=== PATIENT | male | born 1950 | race Two or more races ===

== ENCOUNTER 2024-12-28 06:50 | Inpatient (IN) | payer MEDICARE, OTHER, SELFPAY ==
[2024-12-28] VITALS (19 sets, daily range): BP systolic 108–185; BP diastolic 62–99; BMI 20.7
[2024-12-28 02:30] LABS: Hematocrit 39.6 % (39.0-52.0); Hemoglobin 12.7 g/dL (13.0-18.0); Mean Corp Hgb Conc. 32.1 g/dL (33.0-37.0); Mean Corpuscular Volume 93.8 fL (80.0-94.0); Nucleated Red Blood Cells % 0 % (-); Platelet Count 185 10^3/uL (130-400); Red Cell Dist. Width 14.1 % (11.5-14.5)
[2024-12-28 02:52] LABS: ALT (SGPT) 21 U/L (0-50); AST (SGOT) 29 U/L (17-59); Albumin 4.5 g/dl (3.5-5.0); Alkaline Phosphatase 118 U/L (38-126); Blood Urea Nitrogen 17 mg/dl (9-20); Calcium 9.7 mg/dl (8.4-10.2); Carbon Dioxide 29 mmol/L (22-30); Chloride 103 mmol/L (98-107); Glucose 186 mg/dl (70-99); Potassium 4.7 mmol/L (3.5-5.1); Sodium 139 mmol/L (135-145); Total Protein 7.8 g/dl (6.3-8.2); eGFR > 60.00
[2024-12-28 03:07] LABS: Troponin I 0.256 ng/ml
[2024-12-28] MEDS: LOW STRENGTH ASPIRIN 324 MG PO (04:08)
[2024-12-28] MEDS: NITROSTAT (SUBLINGUAL) 0.4 MG SL ×3 (04:09→05:12)
[2024-12-28] MEDS: HEPARIN 3700 UNITS IV (04:32)
[2024-12-28] MEDS: HEPARIN 25000 UNITS/250 ML IV (04:33)
[2024-12-28 04:35] LABS: APTT 29.0 Sec (23.4-35.0)
--- NOTE | 2024-12-28 05:37 | ED.GENMED ---
History of Present Illness
General
Chief Complaint: Chest Pain
Source: patient and family
Exam Limitations: none
Time Seen by Provider: 12/28/24 03:53
Nursing documentation reviewed up to this point in time: agreed with
History of Present Illness
History of Present Illness:
The patient is a 74-year-old male presenting with a history of intermittent chest pain persisting over several months, which has recently become more constant over the past few days. The patient reports that the chest pain is exacerbated by physical
activity. He was evaluated by a scudding inspector last week, following a previous assessment four to five months ago where he underwent a pharmacologic stress test with persantine and an echocardiogram, both reportedly normal at that time.
During his recent cardiology visit, it was suggested to obtain a cardiac computed tomography scan for calcium scoring. The patient denies any previous history of myocardial infarction.
Currently, the patient experiences substernal chest pain, but denies associated shortness of breath.
He has history of hypertension, [id number] diabetes, hyperlipidemia.
His current scudding inspector is Dr. Watt in [place]. No previous visits to [facility].
Past History
Past History
ED Past Medical History: HTN, Hypercholesterolemia and NIDDM
ED Past Surgical History: Appendectomy
Social History
Tobacco: Non-smoker
Alcohol: None
Drug: None
Personal:
Living: with family
Employment: Retired
Family History
Family History: Other (Noncontributory)
Phy Exam
Physical Exam
Physical Exam:
GENERAL: 74-year-old gentleman appears his stated age, awake and alert, pleasant, appears in no acute distress. and son are accompanying.
EYE: anicteric
NECK: Supple, nontender, no meningismus, no significant adenopathy.
ENT: oral mucosa is moist. No rhinorrhea.
CARDIAC: Regular rate and rhythm. no murmur.
LUNGS: Clear breath sounds bilaterally, no acute respiratory distress, no wheezes/rales/rhonchi
ABDOMEN: Soft, nondistended, without focal tenderness, no r/g, no cvat. normoactive BS.
NEUROLOGICAL: Alert and oriented x3, no focal neuro deficits.
SKIN: Warm and dry, normal color, skin intact. No rash.
MUSCULOSKELETAL: No C/C/E. peripheral pulses are full and equal b/l. No palpable tenderness.
PSYCH: Normal and appropriate interaction.
Scores
Heart Score for Chest Pain Patients
STEMI patient?: No
History: Highly Suspicious
ECG: Significant ST-Depression
Age: >/= 65 years
Risk Factors: 1 or 2 Risk Factors
Troponin: >/= 3 x Normal Limit
Heart Score for Chest Pain Patients: 9
Heart Score Risk: 72.7 % MACE over next 6 weeks
Course
Orders/Labs/Results
Orders:
Orders
12/28/24 01:45
Electrocardiogram (*1) Urgent
Reason for Study: Chest Pain
EKG- Treatment ONCE
CR Chest - 2 Views Urgent
Comment:
Reason For Exam: chest pain
12/28/24 02:23
Complete Blood Count/With Diff Urgent
Comprehensive Metabolic Panel Urgent
Troponin I Urgent
12/28/24 04:02
Aspirin Chewable [Low Strength Aspirin] 324 mg PO NOW STA
Nitroglycerin Sublingual [Nitrostat (Sublingual)] 0.4 mg SL NOW STA
12/28/24 04:07
Heparin 3,700 units IV NOW STA
Nursing to Place Non Medication Order As Directed
Physician Order: PTT 6 hours after initial start of Heparin infusion
Above order entered?: Yes
12/28/24 04:13
PTT Urgent
12/28/24 04:15
Heparin 88497 Units/250 ml 25,000 units in 250 ml IV PER PROTOCOL
Weight to be used for heparin protocol in kilograms (kg):: 62
Protocol:: Cardiac Tx/Acute Coronary
PTT Goal Range to be used:: PTT 73 to 111 seconds
Order type:: Initial
INITIAL Infusion Dose (UNITS/KG/hr) & then follow protocol:: 12 units/kg/hr
Infusion Dose in UNITS/hr & then follow protocol (UNITS/hr):: 750
INFUSION RATE in mL/hr & then follow protocol (mL/hr):: 7.5
PTT less than or equal to 64 seconds:: Increase rate by 200 units/hr (+ 2 mL/hr)
PTT 64.1 to 72.9 seconds:: Increase rate by 100 units/hr (+ 1 mL/hr)
PTT 73 to 111 seconds:: Target Range. No change in rate.
PTT 111.1 to 130.9 seconds:: Decrease rate by 100 units/hr (- 1 mL/hr)
PTT 131 to 199.9 seconds:: HOLD for 1 hr. Then decrease rate by 200 units/hr (- 2 mL/hr)
PTT greater than or equal to 200 seconds:: HOLD for 2 hrs & Notify Provider. Then decrease by 200 units/hr (-
2 mL/hr)
Lab follow-up:: Each change, PTT q6h until 2 consecutive are therapeutic. Then PTT
daily.
12/28/24 04:52
Nitroglycerin Sublingual [Nitrostat (Sublingual)] 0.4 mg SL NOW STA
12/28/24 05:12
Nitroglycerin Sublingual [Nitrostat (Sublingual)] 0.4 mg SL NOW STA
12/28/24 05:15
Electrocardiogram (*1) Urgent
Reason for Study: Chest Pain
EKG- Treatment ONCE
12/28/24 05:20
Troponin I Urgent
12/28/24 05:33
Nitroglycerin Ointment [Nitro-Bid] 1 inch TOPICAL NOW STA
12/28/24 06:09
Admit/Transfer Patient As Directed
Co-Sign Provider:
Level of Care: Inpatient admission
Assign to:: Telemetry
Physician / Group: bandar
Diagnosis: nstemi
Reason for Telemetry: Chest Pain syndromes
Date to Stop Telemetry: 12/30/24
Time to Stop Telemetry: 11:00
Reason for Hospitalization: nstemi
Expected length of stay greater than two midnights?: Yes
ELOS- Estimated Length of Stay in days: 2
I certify the patient meets the requirements for IP care: Yes
PRN Pain Medication Management As Directed
May give lesser potent ordered pain med per pt: Yes
preference::
Protocol:: Medication orders for pain may be administered in a
manner that supports deferring to patient preference
when the pt is:
- Requesting an ordered lesser potent pain medication.
Least to most potent pain medications are defined
as: acetaminophen < NSAID < tramadol < opioids
(morphine, oxycodone, hydromorphone).
- Requesting a lesser dose of the same medication IF
ORDERED.
- Requesting a less intrusive route of administration
if both routes are prescribed by the provider (PO <
IV).
12/28/24 06:11
Code Status As Directed
Resuscitation Status: Full Code
12/28/24 10:30
PTT Urgent
Comment: heparin
12/30/24 11:00
DC Protocol for Telemetry ONCE
Abnormal Lab Results
12/28/24 12/28/24
02:23 05:20
RBC 4.22 L 10^6/uL
(4.70-6.10)
Hgb 12.7 L g/dL
(13.0-18.0)
MCHC 32.1 L g/dL
(33.0-37.0)
Neutrophils % 75.5 H %
(42.2-75.2)
Lymphocytes % 16.3 L %
(20.5-51.1)
Glucose 186 H mg/dl
(70-99)
Troponin I 0.256 H* ng/ml 0.512 H* D ng/ml
12/28/24 02:23
12/28/24 02:23
Vital Signs
Initial and Last Documented VS:
Initial Vital Signs
Temp Pulse Resp BP Pulse Ox
97.7 F 91 18 185/99 98
12/28/24 01:38 12/28/24 01:38 12/28/24 01:38 12/28/24 01:38 12/28/24 01:38
Last Documented Vital Signs
Temp Pulse Resp BP Pulse Ox
97.7 F 63 19 121/68 98
12/28/24 01:38 12/28/24 06:00 12/28/24 02:15 12/28/24 06:00 12/28/24 06:00
MDM/Problems Addressed
Differential Diagnosis Includes:
The Differential Diagnosis includes, in no particular order and is not limited to:
1. Myocardial infarction
2. Stable angina
3. Unstable angina
4. Gastroesophageal reflux disease
5. Musculoskeletal chest pain
6. Pulmonary embolism
7. Pericarditis
8. Aortic dissection
9. Costochondritis
10. Anxiety-related chest pain
MDM/Problems Addressed:
Acute chest pain
Initial EKG shows inferolateral ST downsloping/ischemia without reciprocal changes. No old EKGs to compare. Significant concern for ACS. Patient has been given 324 mg chewable aspirin
And will trial nitroglycerin for chest pain.
Initial labs reveal troponin 0.256
Random glucose elevated at 186. All other labs within normal limits.
Chest x-ray is unremarkable. Clear lung carrero. Normal heart size.
Chronic conditions affecting care: DM, HTN and Other (Hyperlipidemia)
*Radiology
Radiology exam reviewed: preliminary read by ED provider (Chest x-ray is unremarkable. Clear lung carrero. Normal heart size.)
*Pulse Oximetry
SaO2: 100
Oxygen Mode of Delivery: Room air
Patient hypoxic: no
*EKG
Interpreted by ED Provider?: Yes
Interpretation: abnormal
Comparison EKG: no comparison EKG present
Rate: normal
Rhythm: sinus
[place]: normal axis
Interval: normal interval
QRS Pattern: normal QRS
Ischemia: ST depression
*Women Designer Interpretation
Rate: normal
Interpretation: normal
Rhythm: sinus
*Critical Care Note
Total Time (30-74mins, 75-104mins- exclusive of procedures): 45
comment:
Critical care statement: A total of 45 minutes of critical care time was provided for this patient. This includes management of unstable vital signs, evaluation of the patient at bedside, reviewing the patient's pertinent medical records, discussion
with consultants, review of old EKGs and review of pertinent medical records. This time with separate from time utilized to perform the aforementioned documented procedures
Update Note
Update Note:
05:40
After 3 sublingual nitroglycerin patient is chest pain-free.
IV heparin infusing.
Will add Nitropaste.
He remains hemodynamically stable.
Repeat EKG continues to show lateral ischemia, mildly improved from initial EKG.
Repeat troponin is pending.
Will plan to admit to hospitalist service with consult to cardiology.
[facility], Dr. Juarez notified.
ED Attending Note
-
Portions of this chart may have been created with voice recognition software.� Occasional wrong word or��sound alike� substitutions may have occurred due to the inherent limitations of voice recognition software.
Discharge Plan
Departure
Patient Disposition: Admit
Date of Disposition: 12/28/24
Time of Disposition: 05:38
Admit to doctor: Jameson
Presentation/result/management discussed w/ accepting MD/DO: Hospitalist
Condition: Serious
Discharge Problem:
Acute non-ST elevation myocardial infarction (NSTEMI)
Prescriptions:
No Action
atorvastatin 10 mg Tablet
10 mg PO DAILY
omeprazole 40 mg Capsule,Delayed Release(Dr/Ec)
40 mg PO DAILY
repaglinide 0.5 mg Tablet
0.5 mg PO TID
levothyroxine 50 mcg Tablet
50 mcg PO DAILY
ferrous sulfate 325 mg (65 mg iron) Tablet
325 mg PO DAILY
valsartan 160 mg Tablet
160 mg PO DAILY
escitalopram oxalate 10 mg Tablet
10 mg PO DAILY
cyclosporine [Restasis] 0.05 % Dropperette
1 drp OPHTHALMIC (EYE) Q12H
Rx Instructions:
instill 1 drop into both eyes twice a day
metformin 750 mg Tablet Extended Release 24 Hr
750 mg PO DAILY
memantine 5 mg Tablet
5 mg PO DAILY
cholecalciferol (vitamin D3) 25 mcg (1,000 unit) Tablet
25 mcg PO DAILY
Linzess 72 mcg Capsule
72 mcg PO DAILY
Referrals:
Frandy Watt MD [Family Provider]
Interventions
Interventions:
*Risk Screen - Suicide Last Done: 12/28/24 01:38
*General Assessment Last Done: 12/28/24 01:38
*Neglect/Abuse Screening Last Done: 12/28/24 01:38
*ED COVID-19 Vaccine History Last Done: 12/28/24 01:44
*ED Influenza Vaccine History Last Done: 12/28/24 01:44
ED- Cardiac Assessment Last Done: 12/28/24 02:25
Discharge Date and Time
Print Language: FAROESE
[2024-12-28] MEDS: NITRO-BID 1 INCH TOPICAL (05:55)
--- NOTE | 2024-12-28 06:04 | HPS.HSE ---
Family Physician
-
Family Physician: Frandy Watt
Chief Complaint
-
Chest pain
History of Present Illness
This is a 74-year-old with past medical history significant for hypertension, hypothyroid, diabetes, hyperlipidemia presented to the emergency department with chest pain.
Patient reports episodes of intermittent chest pain starting about 4 months ago. At the time he was seen at [facility] and had echo and stress test and was found to have no abnormalities. He has continued to have a chest pain since then with
increasing frequency over the last few weeks. 1 week ago he was also seen by cardiology at [place] and a CT scan was ordered and it is pending at this time. Over the last few days the patient reports that his chest pain has been much more
frequent lasting long and Sunday patient had chest pain throughout the day. Reports substernal chest pain, without radiation. He denies any associated nausea vomiting diaphoresis. He denies any palpitations lightheadedness or dizziness. He
denies any lower extremity swelling orthopnea or PND.
Patient has significant chest pain on arrival in the emergency department. He is chest pain-free after 3 doses of sublingual nitroglycerin.
Emergency department patient was afebrile, blood pressure was 118/69 with a pulse rate of 60 and he was satting 97% on room air. ECG shows ST depressions in the leads V4 through 6 as well as 2 3 and aVF. Troponin was initially 0.25. Chest x-ray
was clear.
CBC was unremarkable. Electrolytes and creatinine were all within normal range.
Medical History
Past Medical History
Past Medical History: Reports HTN, Hypercholesterolemia, Hypothyroidism and NIDDM
Past Surgical History: Reports Appendectomy
Social History
Tobacco: Non-smoker
Alcohol: None
Drug: None
Living: With Family
Family History
Family History: Not pertinent
Allergies / Home Medications
Allergies reflects when Allergies were last updated in [employer].
Home Medications with original date entered in [employer]
Allergy/Medication List:
Allergies
Allergy/AdvReac Type Severity Reaction Status Date / Time
No Known Allergies Allergy Verified 12/28/24 01:37
Home Medications
atorvastatin 10 mg tablet 10 mg PO DAILY 12/28/24
cholecalciferol (vitamin D3) 25 mcg (1,000 unit) tablet 25 mcg PO DAILY 12/28/24
cyclosporine 0.05 % eye drops in a dropperette (Restasis) 1 drp ophthalmic (eye) Q12H 12/28/24
escitalopram oxalate 10 mg tablet 10 mg PO DAILY 12/28/24
ferrous sulfate 325 mg (65 mg iron) tablet 325 mg PO DAILY 12/28/24
levothyroxine 50 mcg tablet 50 mcg PO DAILY 12/28/24
linaclotide 72 mcg capsule (Linzess) 72 mcg PO DAILY 12/28/24
memantine 5 mg tablet 5 mg PO DAILY 12/28/24
metformin 750 mg tablet,extended release 24 hr 750 mg PO DAILY 12/28/24
omeprazole 40 mg capsule,delayed release 40 mg PO DAILY 12/28/24
repaglinide 0.5 mg tablet 0.5 mg PO TID 12/28/24
valsartan 160 mg tablet 160 mg PO DAILY 12/28/24
Review of Systems
-
Constitutional: Reports No Symptoms
EENT: Reports No Symptoms
Respiratory: Reports No Symptoms
Cardiac: Reports Chest Pain
Abdomen/GI: Reports No Symptoms
: Reports No Symptoms
Musculoskeletal: Reports No Symptoms
Skin: Reports No Symptoms
Neurological: Reports No Symptoms
Endocrine: Reports No Symptoms
Hematologic/Lymphatic: Reports No Symptoms
Psych: Reports No Symptoms
Physical Exam
Vital Signs
Vital Signs
Temp Pulse Resp BP Pulse Ox
97.7 F 63 19 121/68 98
12/28/24 01:38 12/28/24 06:00 12/28/24 02:15 12/28/24 06:00 12/28/24 06:00
Physical Exam
General: Well Developed, Well Nourished and No Apparent Distress
HEENT: NormoCephalic, Moist mucous membranes and Atraumatic
Respiratory: Clear
Cardiac: S1/S2 and Regular Rhythm; No Murmur or Rub
GI: Soft, Non Tender, Non Distended and Normal Bowel Sounds; No Organomegaly
Rectal: Deferred by Provider
Musculoskeletal: No Clubbing, No Cyanosis and No Edema
Skin: No Rash
Neuro: AO x 3 and Nonfocal/grossly intact
Hematologic/Lymphatic: No Lymphadenopathy
Laboratory Results
-
12/28/24 02:23
12/28/24 02:23
Laboratory Results
APTT 29.0 Sec (23.4-35.0) 12/28/24 04:13
Total Bilirubin 0.9 mg/dl (0.2-1.3) 12/28/24 02:23
AST 29 U/L (17-59) 12/28/24 02:23
ALT 21 U/L (0-50) 12/28/24 02:23
Alkaline Phosphatase 118 U/L (38-126) 12/28/24 02:23
Troponin I Cancelled 12/28/24 05:09
Data Reviewed
-
Diagnostic Radiology: Image Personally Visualized and interpreted
Medical Tests (Nuc Med, Echo, EKG etc): Image Personally Visualized and interpreted
Lab Data: Labs Reviewed by me
Impression/Plan
-
IMPRESSION:
74-year-old with multiple comorbidities presented to the emergency department with chest pain and found to have non ST elevation TN with ST depressions on ECG.
PLAN:
NSTEMI - Currently CP and HD stable after SL NTG. 4 month h/o substernal cp intermittently and 1 day of persistent cp. Denies any other associated symptoms
- admit to telemetry
- NPO for now
- ntg prn chest pain
- ecg prn cp
- started asa 324, heparin gtt
- continue asa 81 daily
- echo
- cardiovascular panel
- cardiology consult to [facility]
DM II
- hold metformin
- sliding scale insulin
HTN
- continue valsartan with hold parameters
Hypothyroid
- continue levothyroxine
DVT PPX - on heparin sq
Code status - Full Code
[2024-12-28 06:11] LABS: Troponin I 0.512 ng/ml
--- NOTE | 2024-12-28 07:50 | PTCARENOTE ---
12/28- Patient transferred and oriented to unit without issue. Patient speaks [place] with minimal Haitian, but Daughter is with him and is fluent in both. She states this is his first time in a hospital, but he does have a hx of Constipation, High
Blood Pressure, High Cholesterol and Hypothyroidism. Discussed plan of care with daughter and patient. Gave printed education on CAD and Heart Disease in [place]. Patient is AAOX3, Independent walking with cane. Teley #[id number], currently NSR.
Assessment benign except an intermittent S3 heart sound. Skin CDI. Will continue to monitor.
[2024-12-28 09:15] LABS: Troponin I 2.110 ng/ml
[2024-12-28] MEDS: DIOVAN 160 MG PO (09:26)
[2024-12-28] MEDS: LIPITOR 10 MG PO (09:26)
[2024-12-28] MEDS: LEXAPRO 10 MG PO (09:26)
[2024-12-28] MEDS: SYNTHROID 50 MCG PO (09:26)
[2024-12-28] MEDS: NAMENDA 5 MG PO (09:27)
[2024-12-28] MEDS: PROTONIX 40 MG PO (09:27)
[2024-12-28] MEDS: FEOSOL 325 MG PO (09:27)
[2024-12-28] MEDS: RESTASIS 0.05% OPHTHALMIC EMULSION 1 DROPS OPHTH ×2 (09:27→19:48)
[2024-12-28 09:35] LABS: Glucose - Point of Care 106 mg/dl (70-99)
[2024-12-28 11:07] LABS: APTT 67.8 Sec (23.4-35.0)
--- NOTE | 2024-12-28 11:40 | CON.CAR ---
Consultation
Consultation Request
Date/Time Consultation Requested: 12/28/2024 6: 30
Date/Time Consultation Performed: 12/28/2024 10: 30
Requesting Provider: Jc
Performing Provider: Ann
Reason for Consultation: Chest pain, non-STEMI
Medical History
-
Chief Complaint: Chest pain
History of Present Illness:
Cesar has a history of hypertension, hypothyroidism, diabetes, hypercholesterolemia. He has had chest pain for the past 2 months. It occurs mostly with exertion with walking up steps. He saw cardiology in [place] and had normal stress test
and echo in the summer 2024. History is obtained with daughter acting as deicer tester as patient has language barrier. He had worsening chest discomfort last night came to the ER and is ruled in for non-STEMI. No chest pain at present
Past Medical History
Past Medical History: Other (See HPI)
Past Surgical History: Appendectomy
Social History
Tobacco: Non-Smoker
Alcohol: None
Drug: None
Personal:
Living: With Family
Employment: Retired
Family History
Family History: Other (Father did not have heart disease but mother had an NC at age 70)
Allergies / Home Medications
Allergy/AdvReac Type Severity Reaction Status Date / Time
No Known Allergies Allergy Verified 12/28/24 01:37
�Medication �Instructions �Recorded �Confirmed �Type
atorvastatin 10 mg tablet 10 mg PO DAILY 12/28/24 12/28/24 History
cholecalciferol (vitamin D3) 25 25 mcg PO DAILY 12/28/24 12/28/24 History
mcg (1,000 unit) tablet
cyclosporine 0.05 % eye drops in a 1 drp ophthalmic (eye) Q12H 12/28/24 12/28/24 History
dropperette (Restasis)
escitalopram oxalate 10 mg tablet 10 mg PO DAILY 12/28/24 12/28/24 History
ferrous sulfate 325 mg (65 mg 325 mg PO DAILY 12/28/24 12/28/24 History
iron) tablet
levothyroxine 50 mcg tablet 50 mcg PO DAILY 12/28/24 12/28/24 History
linaclotide 72 mcg capsule 72 mcg PO DAILY 12/28/24 12/28/24 History
(Linzess)
memantine 5 mg tablet 5 mg PO DAILY 12/28/24 12/28/24 History
metformin 750 mg tablet,extended 750 mg PO DAILY 12/28/24 12/28/24 History
release 24 hr
omeprazole 40 mg capsule,delayed 40 mg PO DAILY 12/28/24 12/28/24 History
release
repaglinide 0.5 mg tablet 0.5 mg PO TID 12/28/24 12/28/24 History
valsartan 160 mg tablet 160 mg PO DAILY 12/28/24 12/28/24 History
Review of Systems
-
History Source: Patient
All other systems: Negative unless noted
Constitutional: No Symptoms
EENT: No Symptoms
Respiratory: No Symptoms
Cardiac: Chest Pain
Abdomen/GI: No Symptoms
: No Symptoms
Musculoskeletal: No Symptoms
Skin: No Symptoms
Neurological: No Symptoms
Endocrine: No Symptoms
Hematologic/Lymphatic: No Symptoms
Physical Exam
Vital Signs
Temp Pulse Resp BP Pulse Ox
98.1 F 62 18 129/62 100
12/28/24 11:23 12/28/24 11:23 12/28/24 11:23 12/28/24 11:23 12/28/24 11:23
General: Well developed, well nourished in NAD.
Neck: Supple, no JVD, HJR, carotids +2 B/L, no bruits bilaterally.
Heart: Non displaced PMI, RRR, no murmurs, No S3, S4, no rubs.
Lungs: Clear to auscultation bilaterally, no wheeze, rhonchi, rubs bilaterally,
normal expiratory phase.
Abdomen: Normal bowel sounds, soft, non-tender, non-distended.
Extremities: No clubbing, cyanosis or edema bilaterally.
Neuro: Grossly nonfocal, awake, alert and oriented x3.
Lab Results
12/28/24 02:23
12/28/24 02:23
Troponin I Cancelled 12/28/24 11:30
Impression / Plan
-
Impression:
Non-STEMI with peak troponin of 2.1 so far
Diabetes
Hypertension
Hypothyroidism
Hypercholesterolemia
Plan:
Patient presents with worsening chest pain and non-STEMI. He is pain-free at present.
Will add Toprol and continue IV heparin
Plan on catheterization on 12/29
Discussed in detail with patient and daughter as well as granddaughter who is a PA
Data Reviewed
-
EKG: Tracing Personally Visualized and interpreted
Radiology: Report Reviewed by me
Medical Tests (Nuc Med, Echo etc): Report Reviewed by me
Labs: Labs Reviewed by me
Old Records: Reviewed
[2024-12-28 11:55] LABS: Glucose - Point of Care 95 mg/dl (70-99)
--- NOTE | 2024-12-28 12:18 | W.PN.UPDATE ---
Update Note
Progress Note Update
No current chest pain
Adding Toprol, continue IV heparin
Plan for left heart cath tomorrow 12/29
Trend troponin till peak
[2024-12-28 16:33] LABS: Glucose - Point of Care 105 mg/dl (70-99)
[2024-12-28] MEDS: TOPROL XL 25 MG PO (16:46)
[2024-12-28 18:44] LABS: APTT 103.4 Sec (23.4-35.0)
[2024-12-28] MEDS: MIRALAX 17 GRAMS PO (20:29)
[2024-12-28 21:08] LABS: Glucose - Point of Care 268 mg/dl (70-99)
[2024-12-29] VITALS (14 sets, daily range): BP systolic 100–157; BP diastolic 46–99; BMI 20.4
[2024-12-29 01:19] LABS: APTT 100.2 Sec (23.4-35.0)
[2024-12-29 05:56] LABS: Glucose - Point of Care 106 mg/dl (70-99)
[2024-12-29 08:09] LABS: Glucose - Point of Care 116 mg/dl (70-99)
[2024-12-29] MEDS: TOPROL XL 25 MG PO (08:22)
[2024-12-29] MEDS: LOW STRENGTH ASPIRIN 81 MG PO (08:23)
[2024-12-29] MEDS: SYNTHROID 50 MCG PO (08:23)
[2024-12-29] MEDS: PROTONIX 40 MG PO (08:23)
[2024-12-29] MEDS: LEXAPRO 10 MG PO (08:23)
[2024-12-29] MEDS: LIPITOR 10 MG PO (08:23)
[2024-12-29] MEDS: NAMENDA 5 MG PO (08:23)
[2024-12-29] MEDS: FEOSOL 325 MG PO (08:23)
[2024-12-29] MEDS: DIOVAN 160 MG PO (08:23)
[2024-12-29] MEDS: RESTASIS 0.05% OPHTHALMIC EMULSION 1 DROPS OPHTH ×2 (08:24→20:54)
[2024-12-29] MEDS: MIRALAX PO (08:26)
--- NOTE | 2024-12-29 08:38 | TRANSFER ---
Report called to [facility] laboratory equipment. Transport set up for patient to be brought down to have a left hear cath. patient aware and instructed to remove all undergarments and jewelry.
[2024-12-29 08:45] LABS: Hematocrit 37.1 % (39.0-52.0); Hemoglobin 11.9 g/dL (13.0-18.0); Mean Corp Hgb Conc. 32.1 g/dL (33.0-37.0); Mean Corpuscular Volume 93.0 fL (80.0-94.0); Platelet Count 168 10^3/uL (130-400); Red Cell Dist. Width 13.8 % (11.5-14.5)
[2024-12-29 08:54] LABS: APTT 84.0 Sec (23.4-35.0)
--- NOTE | 2024-12-29 09:12 | PTCARENOTE ---
recieved pt from [facility] on a stretcher. pt awake , alert, and oriented x3 ,however speaks only some armenian. daughter at bedside to help translate. pts vs are stable. b/p 146/84, nsb at 56, rr at 18, pluse ox 100% on ra. lungs CTA. received pt on
heparin iv drip at 8.5 units /hr. pt now waiting for dr charles to sign consent and proceed w left heart cath.
hr.
[2024-12-29 09:14] LABS: Glycohemoglobin (HgbA1c) 6.1 % (4.0-5.9)
[2024-12-29 09:25] LABS: Blood Urea Nitrogen 14 mg/dl (9-20); Calcium 9.3 mg/dl (8.4-10.2); Carbon Dioxide 30 mmol/L (22-30); Chloride 104 mmol/L (98-107); Estimated Creatinine Clearance 80 ml/min; Glucose 116 mg/dl (70-99); HDL Cholesterol 50 mg/dl; LDL Cholesterol, Calculated 45 mg/dl; Potassium 4.8 mmol/L (3.5-5.1); Sodium 134 mmol/L (135-145); Very Low Density Lipoprotein 9 mg/dl (0-30); eGFR > 60.00
--- NOTE | 2024-12-29 09:51 | PTCARENOTE ---
dr charles at bedside now
--- NOTE | 2024-12-29 10:20 | W.PN.HOSP.TC ---
Today's Communication/Plan
-
see plan
Assessment / Plan
Assessment / Plan
IMPRESSION:
74-year-old with multiple comorbidities presented to the emergency department with chest pain and found to have non ST elevation ME with ST depressions on ECG.
PROCEDURES:
1. Left heart catheterization with coronary and single-plane left ventriculography
2. Successful stenting of the proximal circumflex with a 2.75 x 18 mm Xience stent that was implanted at 16 piter and postdilated with a 3.0 mm noncompliant balloon to 20 piter
PLAN:
NSTEMI - Currently CP and HD stable after SL NTG. 4 month h/o substernal cp intermittently and 1 day of persistent cp. Denies any other associated symptoms
- s/p cardiac cath 12/29 with stenting to proximal circumflex
- continue aspirin, Plavix
- new start Metoprolol
- Atorvastatin increased to 40mg
- TTE
DM II
- hold metformin
- sliding scale insulin
HTN
- continue valsartan with hold parameters
Hypothyroid
- continue levothyroxine
DVT PPX - SCD
Code status - Full Code
Anticipated Discharge: 24 - 48 hours
Subjective/Interval History
-
Date of Service: December 29, 2024
seen post catheterization
feeling well, no chest pain
right wrist in compression
Objective Data
-
Labs:
Laboratory Results
12/29/24 12/29/24
00:52 08:07
WBC 5.4
Hgb 11.9 L
Hct 37.1 L
Plt Count 168
APTT 100.2 H 84.0 H
Sodium 134 L
Potassium 4.8
Chloride 104
Carbon Dioxide 30
BUN 14
Creatinine 0.7
Glucose 116 H
Calcium 9.3
Vital Signs:
Vital Signs
Temp Pulse Resp BP Pulse Ox
97.4 F 58 16 129/64 98
12/29/24 07:00 12/29/24 08:23 12/29/24 07:00 12/29/24 08:23 12/29/24 07:00
I&O
12/28/24 12/29/24 12/30/24
06:59 06:59 06:59
Intake Total 960 / 960
Balance 960 / 960
Review of Systems
-
History Source: Patient
All other systems: Reviewed and negative
Physical Exam
-
General: No Apparent Distress
HEENT: PERRLA
Respiratory: Clear to Auscultation; Negative Wheezes
Cardiac: Regular Rhythm and S1/S2
GI: Soft and Nontender
Musculoskeletal: No Edema
Skin: Warm and Dry; Negative Rash
Neuro: AO x 3
Psych: Calm
Data Reviewed
-
Diagnostic Radiology: Report Reviewed by me
Labs: Labs Reviewed by me
--- NOTE | 2024-12-29 11:45 | ITS.CL.CATH ---
[employer] - Catheterization
Cardiac Catheterization
Procedure Report:
LEFT HEART CATH AND CORONARY INTERVENTION
Date of Procedure: December 29, 2024
Referring: Dr. Tony Wilson
PROCEDURES:
1. Left heart catheterization with coronary and single-plane left ventriculography
2. Successful stenting of the proximal circumflex with a 2.75 x 18 mm Xience stent that was implanted at 16 piter and postdilated with a 3.0 mm noncompliant balloon to 20 piter
INDICATION: This is a 74-year-old gentleman with a past medical history notable for hypertension, hyperlipidemia, and longstanding diabetes mellitus. He presented to [facility] with chest discomfort and ruled in for a small non-ST segment
elevation myocardial infarction. He is now referred for coronary angiography.
ACCESS: Right radial artery, 6 Palestinian sheath using ultrasound guidance
HEMODYNAMICS (mmHg):
AO (s/d, m) : 138/67, 96
LV (s/d) : 156/18
LVEDP : 35
CORONARY FINDINGS
Dominance: Right
LEFT MAIN: Normal
LEFT ANTERIOR DESCENDING: The LAD arises normally from the left main. The LAD is moderately calcified. Diffuse luminal irregularities to 30-40% are noted in the mid LAD. The mid to distal vessel was widely patent and the distal LAD wraps around
the apex
CIRCUMFLEX: The circumflex is a medium caliber nondominant vessel that has a 95% eccentric ruptured plaque in the proximal circumflex. OM1 is a small caliber vessel. The circumflex terminates in a large bifurcating OM 2.
RIGHT CORONARY: The right coronary artery is a moderate caliber dominant vessel. There is mild coronary calcification in the proximal RCA. Only luminal irregularities are noted throughout the vessel. The PDA and posterolateral branch are widely
patent.
VENTRICULOGRAPHY: Left ventriculography is performed in an an KHMER projection. The digital single-plane left ventricular ejection fraction is estimated at 45-50%
ANGIOPLASTY PROCEDURE DETAIL: Upon review of the diagnostic catheterization films the decision was made to proceed with percutaneous revascularization of the high-grade proximal circumflex stenosis. A 180 mg loading dose of ticagrelor was
administered. Intravenous heparin was given and the ACT was monitored throughout the procedure. The origin of the left main was cannulated with a 6 Palestinian EBU 3.5 guide catheter and a BMW guidewire across the high-grade proximal circumflex
stenosis and was advanced into the distal vessel. The circumflex underwent direct stenting with placement of a 2.75 x 18 mm Xience stent that was implanted at 16 piter and postdilated to high-pressure's with a 3.0 mm noncompliant balloon inflated to
16 piter distally and 20 piter in the proximal to midportion of the stent.
SEDATION: 61 minutes of procedural sedation was utilized. An independent medical reviewer was present to assist with and help manage the patient's level of consciousness and physiologic status
RADIATION SUMMARY: Fluoro Time (min): 7.6, Dose (mGy): 382, DAP (Gy.cm2) : 27.1
CONCLUSIONS
1. Successful stenting of the proximal circumflex with a 2.75 x 18 mm Xience stent that was implanted at 16 piter and postdilated with a 3.0 mm noncompliant balloon inflated to 16 piter distally and 20 piter in the proximal and midportion of the stent
2. Low normal LVEF
RECOMMENDATIONS
1. Uninterrupted dual antiplatelet therapy for 1 year followed by aspirin daily afterwards
2. High intensity statin therapy and aggressive secondary risk modification
3. Follow-up will be arranged with Dr. Tony Wilson
Copy to: Dr. Tony Wilson
[2024-12-29 12:00] LABS: Glucose - Point of Care 118 mg/dl (70-99)
[2024-12-29] MEDS: LIPITOR 40 MG PO (12:06)
--- NOTE | 2024-12-29 13:27 | PTCARENOTE ---
Pt received s/p stent to prox circumflex. AAOx3. NSR on tele, HRs 70s. SpO2 100 % on room air. VSS. R radial with TR band on, 13cc remaining in pressure chamber. Small hematoma noted above TR band. Manual pressure held. TAINA Ritter at bedside
to assess. Manual pressure held for 10 minutes. Hematoma no longer present at this time. Will push back removal of air from TR band by 20 minutes per verbal order. Neurovascular checks WDL. Education provided about activity restrictions for RUE.
Assessment documented. Pt resting in bed, family at bedside.
--- NOTE | 2024-12-29 13:44 | CM ---
Reviewed chart. Met with Mr. Watt and his daughter to review discharge plans. Prior to admission he resides with his daughter in a two story home with one step to enter. Prior to admission he ambulates with a single point cane. His daughter
assists in ADLS. He has a single point cane and walker at home. He has a prescription plan with [facility] and uses [facility]. Telephone call to [employer], ( ) to check on co-pay for Brilinta 90 mg po bid. His co-pay is zero
because he has met his $2000.00 out of pocket expense. Updated EXPERIENTIAL THERAPIST. Vickidcal work-up in progress. The discharge plan is to return home with his daughter when medically stable.
--- NOTE | 2024-12-29 13:57 | PTCARENOTE ---
Attempted to remove 2cc of air from TR band. Oozing occurred from r radial puncture site. TR band re-inflated with 2cc of air, oozing stopped. Provider notified. R radial pulse palpable. SpO2 100%, pulse ox on R hand. No hematoma present at this
time.
[2024-12-29 15:16] LABS: Troponin I 2.260 ng/ml
[2024-12-29 17:28] LABS: Glucose - Point of Care 131 mg/dl (70-99)
[2024-12-29] MEDS: BRILINTA 90 MG PO (20:54)
[2024-12-29 21:08] LABS: Troponin I 1.760 ng/ml
[2024-12-30 03:26] VITALS: BP 120/62
[2024-12-30 03:32] VITALS: BMI 20.3
[2024-12-30 03:42] LABS: Hematocrit 33.0 % (39.0-52.0); Hemoglobin 11.0 g/dL (13.0-18.0); Mean Corp Hgb Conc. 33.3 g/dL (33.0-37.0); Mean Corpuscular Volume 89.4 fL (80.0-94.0); Platelet Count 164 10^3/uL (130-400); Red Cell Dist. Width 13.7 % (11.5-14.5)
[2024-12-30 03:53] LABS: APTT 29.4 Sec (23.4-35.0)
[2024-12-30 04:10] LABS: Blood Urea Nitrogen 17 mg/dl (9-20); Calcium 9.1 mg/dl (8.4-10.2); Carbon Dioxide 26 mmol/L (22-30); Chloride 104 mmol/L (98-107); Estimated Creatinine Clearance 79 ml/min; Glucose 124 mg/dl (70-99); HDL Cholesterol 42 mg/dl; LDL Cholesterol, Calculated 39 mg/dl; Potassium 4.6 mmol/L (3.5-5.1); Sodium 132 mmol/L (135-145); Very Low Density Lipoprotein 16 mg/dl (0-30); eGFR > 60.00
--- NOTE | 2024-12-30 05:21 | PTCARENOTE ---
Assumed care on pt at 1900, aaox3, family at bedside. SR on tele monitor, HR 70's, bp stable. Denies CP or SOB, O2 sat 96-98% RA. R radial site dsg with scant amount of bleeding, dsg changed at start of shift and remains clean and intact, no
bleeding or swelling noted, some ecchymosis. EKG and ordered labs obtained this morning. Call araujo within reach.
--- NOTE | 2024-12-30 07:52 | W.PN.HOSP.TC ---
Today's Communication/Plan
-
see plan
Assessment / Plan
Assessment / Plan
IMPRESSION:
74-year-old with multiple comorbidities presented to the emergency department with chest pain and found to have non ST elevation DE with ST depressions on ECG.
PROCEDURES 12/29/24
1. Left heart catheterization with coronary and single-plane left ventriculography
2. Successful stenting of the proximal circumflex with a 2.75 x 18 mm Xience stent that was implanted at 16 piter and postdilated with a 3.0 mm noncompliant balloon to 20 piter
TTE 12/29/24
SUMMARY
1. Left ventricular ejection fraction is normal with an ejection fraction of 65 % by Orona's biplane method of discs.
2. Normal left ventricular size, wall thickness and systolic function. No regional wall motion abnormalities are seen.
3. Mild to moderate mitral valve regurgitation.
PLAN:
NSTEMI - Currently CP and HD stable after SL NTG. 4 month h/o substernal cp intermittently and 1 day of persistent cp. Denies any other associated symptoms
- s/p cardiac cath 12/29 with stenting to proximal circumflex
- continue aspirin, Plavix
- new start Metoprolol
- Atorvastatin increased to 40mg
- TTE results above
- expect DC today after seen by cardiology
DM II
- hold metformin
- sliding scale insulin
HTN
- continue valsartan with hold parameters
Hypothyroid
- continue levothyroxine
DVT PPX - SCD
Code status - Full Code
Anticipated Discharge: Today
Subjective/Interval History
-
Date of Service: December 30, 2024
feeling well
no chest pain
no pain or hematoma of wrist
asking if he can go home
Objective Data
-
Labs:
Laboratory Results
12/30/24
03:31
WBC 6.2
Hgb 11.0 L
Hct 33.0 L
Plt Count 164
APTT 29.4
Sodium 132 L
Potassium 4.6
Chloride 104
Carbon Dioxide 26
BUN 17
Creatinine 0.7
Glucose 124 H
Calcium 9.1
Vital Signs:
Vital Signs
Temp Pulse Resp BP Pulse Ox
98.6 F 71 20 120/62 97
12/30/24 03:26 12/30/24 05:01 12/30/24 03:26 12/30/24 03:26 12/30/24 03:26
I&O
12/29/24 12/30/24 12/31/24
06:59 06:59 06:59
Intake Total 960 / 960 240 / 240
Balance 960 / 960 240 / 240
Review of Systems
-
History Source: Patient
All other systems: Reviewed and negative
Physical Exam
-
General: No Apparent Distress
HEENT: PERRLA
Respiratory: Clear to Auscultation; Negative Wheezes
Cardiac: Regular Rhythm and S1/S2
GI: Soft and Nontender
Musculoskeletal: No Edema and Other (right wrist without hematoma )
Skin: Warm and Dry; Negative Rash
Neuro: AO x 3
Psych: Calm
Data Reviewed
-
Diagnostic Radiology: Report Reviewed by me
Labs: Labs Reviewed by me
[2024-12-30 08:30] VITALS: BP 123/62
--- NOTE | 2024-12-30 08:35 | PTCARENOTE ---
Assumed care of pt from prev nsg shift AAOx3; Pt w/no c/o CP or SOB. Pt w/VSS w/HR in the 60's & BP 123/62. Pt is SR on telemetry monitoring. Pt sitting on side of bed eating breakfast. Pt w/call araujo within reach & plan of care ongoing.
[2024-12-30 09:02] LABS: Glucose - Point of Care 206 mg/dl (70-99)
[2024-12-30] MEDS: PROTONIX 40 MG PO (09:08)
[2024-12-30] MEDS: RESTASIS 0.05% OPHTHALMIC EMULSION 1 DROPS OPHTH (09:08)
[2024-12-30] MEDS: NAMENDA 5 MG PO (09:08)
[2024-12-30] MEDS: MIRALAX 17 GRAMS PO (09:08)
[2024-12-30] MEDS: TOPROL XL 25 MG PO (09:09)
[2024-12-30] MEDS: BRILINTA 90 MG PO (09:09)
[2024-12-30] MEDS: FEOSOL 325 MG PO (09:09)
[2024-12-30] MEDS: LOW STRENGTH ASPIRIN 81 MG PO (09:09)
[2024-12-30] MEDS: LIPITOR 40 MG PO (09:09)
[2024-12-30] MEDS: LEXAPRO 10 MG PO (09:09)
[2024-12-30] MEDS: SYNTHROID 50 MCG PO (09:09)
[2024-12-30] MEDS: DIOVAN 160 MG PO (09:12)
[2024-12-30 11:07] VITALS: BP 115/58
--- NOTE | 2024-12-30 11:21 | W.PN.CARDCBS ---
Addendum entered and electronically signed by Gama Howe DO 12/30/24 12:48:
I saw and examined the patient.
The Aeroplane Pilot's note was reviewed and I agree with the note.
Comment:
Plan:
Reviewed his cardiac catheterization PCI and coronary anatomy with him and family at bedside
EF is preserved by echo.
Continue dual antiplatelet therapy for a minimum of 1 year
Check right wrist ultrasound
He appears euvolemic, recommend close clinical follow-up including daily weights as an outpatient, low threshold to consider outpatient Lasix.
Continue statin therapy, LDL at goal.
Outpatient follow-up with his outside raker buffing wheel regarding CAD and MR.
Appears stable for discharge from a cardiac standpoint pending ultrasound results and labs.
Original Note:
Today's Communication / Plan
-
Check right wrist ultrasound
Check proBNP. Consider for dose of Lasix
Continue aspirin, Brilinta, Lipitor, Toprol, valsartan
Cardiac rehab
Op follow up with Dr. Wilson
Impression / Plan
-
Primary Mobile Development Manager: Dr. Wilson
Impression:
Presentation with CP
Non-STEMI with peak troponin of 2.26 status post circumflex PCI 12/29/2024
Elevated LVEDP at time of cath, 35
Diabetes
Hypertension
Hypothyroidism
Hypercholesterolemia
Hyponatremia
Echo 12/29/2024: EF 65%, no regional wall motion abnormalities noted, mild to moderate MR
Plan:
- Patient presented with chest pain and ruled in for NSTEMI with peak troponin of 2.26. Underwent cardiac catheterization resulting in circumflex PCI 12/29/2024
- Right wrist noted to have hematoma last evening post cath, however remains with some swelling and tenderness this morning. Will check right wrist ultrasound
- Continue aspirin, Brilinta. Hemoglobin 11
- Continue Toprol, outpatient valsartan
- At time of cath LVEDP was 35. Chest x-ray shows trace bilateral pleural effusions and with some fine crackles at bases on exam. Will add on proBNP. Would consider for dose of IV Lasix today with close monitoring of outpatient weights upon
discharge
- Lipitor dose increased this admission to 40 mg every afternoon. LDL 39
- Cardiac rehab. OP activity restrictions reviewed
- Outpatient follow-up with Dr. Wilson of [facility]
- d/w nursing. d/w patient and family at bedside
Progress Note - Mobile Development Manager
Subjective
Date of Service: December 30, 2024
No chest pain overnight. Denies shortness of breath
Objective
Labs:
12/30/24 03:31
12/30/24 03:31
Labs
Hgb 11.0 g/dL (13.0-18.0) L 12/30/24 03:31
Hct 33.0 % (39.0-52.0) L 12/30/24 03:31
Plt Count 164 10^3/uL (130-400) 12/30/24 03:31
APTT 29.4 Sec (23.4-35.0) 12/30/24 03:31
Sodium 132 mmol/L (135-145) L 12/30/24 03:31
Potassium 4.6 mmol/L (3.5-5.1) 12/30/24 03:31
BUN 17 mg/dl (9-20) 12/30/24 03:31
Creatinine 0.7 mg/dL (0.7-1.3) 12/30/24 03:31
Glucose 124 mg/dl (70-99) H 12/30/24 03:31
Troponins
12/28/24 12/28/24 12/28/24
02:23 05:09 05:20
Troponin I 0.256 H* Cancelled 0.512 H* D
12/28/24 12/28/24 12/29/24
08:29 11:30 14:27
Troponin I 2.110 H* D Cancelled 2.260 H*
12/29/24
20:35
Troponin I 1.760 H*
Vital Signs and I&O:
Vital Signs
Temp Pulse Resp BP Pulse Ox
98.1 F 59 15 123/62 98
12/30/24 11:05 12/30/24 11:05 12/30/24 08:29 12/30/24 08:30 12/30/24 11:05
Vital Signs
Temp Pulse Resp BP Pulse Ox
98.1 F 59 15 123/62 98
12/30/24 11:05 12/30/24 11:05 12/30/24 08:29 12/30/24 08:30 12/30/24 11:05
Intake & Output
12/28/24 12/29/24 12/30/24 12/31/24
07:59 07:59 07:59 07:59
Intake Total 960 / 960 240 / 240
Balance 960 / 960 240 / 240
Physical Exam
Physical Exam
GEN: No distress, awake, alert, oriented x3
HEENT: supple, anicteric, mmm
LUNGS: Fine crackles at bilateral bases, no wheezes/rales
CV: Reg, S1/S2, no murmur
ABD: soft, BS+, NT/ND
EXT: No cyanosis, clubbing, edema
NEURO: Gross non-focal
SKIN: Warm, pink, dry. No rash. Right wrist site with vernon-incisional ecchymoses, mild swelling and tenderness
--- NOTE | 2024-12-30 12:08 | CM ---
Addendum entered by Maris Evans 12/30/24 12:22:
Telephone call to [facility] who states they are filling his Brilinta Script today.
Original Note:
Reviewed chart, Met with Mr Watt and his family to review discharge plans. Family states he maybe able to go home soon. Prior to admission he resides with his daughter in a two story home with one step to enter. Prior to admission he ambulates
with a single point cane. His daughter assists in ADLS. He has a single point cane and walker at home. He has a prescription plan with [facility] and uses [facility]. Telephone call to [facility], ( ) to check on co-pay for
Brilinta 90 mg po bid. His co-pay is zero because he has met his $2000.00 out of pocket expense. Updated SKEINER. Medical work-up in progress. The discharge plan is to return home with his daughter when medically stable.
[2024-12-30 15:20] VITALS: BP 110/62
--- NOTE | 2024-12-30 15:52 | W.DS.TRANS ---
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
-
Discharge Instructions:
Discharge Diagnosis/Procedures Angioplasty and stent to Left Circumflex artery
Diet Low Cholesterol
Activity As tolerated
Driving Restrictions As prior to admission
Bathing Restrictions None
Other Services Cardiac Rehab
Specialty Instructions Weigh Daily
Instructions:
Stand-Alone Forms: DC Instructions- Cath/EP Lab
Changes to Home Medications: Yes
Discharge Medications:
DC Medications w/original date entered in [employer]
cholecalciferol (vitamin D3) 25 mcg (1,000 unit) tablet 25 mcg PO DAILY Supplement 12/28/24
cyclosporine 0.05 % eye drops in a dropperette (Restasis) 1 drp ophthalmic (eye) Q12H Eye Condition 12/28/24
escitalopram oxalate 10 mg tablet 10 mg PO DAILY Mental Health/Anxiety 12/28/24
ferrous sulfate 325 mg (65 mg iron) tablet 325 mg PO DAILY Supplement 12/28/24
levothyroxine 50 mcg tablet 50 mcg PO DAILY Thyroid 12/28/24
linaclotide 72 mcg capsule (Linzess) 72 mcg PO DAILY Gastrointestinal Issue 12/28/24
memantine 5 mg tablet 5 mg PO DAILY Sleep 12/28/24
metformin 750 mg tablet,extended release 24 hr 750 mg PO DAILY Gastrointestinal Issue 12/28/24
Held on 12/30/24. Instructions: Resume on 12/31/24.
omeprazole 40 mg capsule,delayed release 40 mg PO DAILY Gastrointestinal Issue 12/28/24
repaglinide 0.5 mg tablet 0.5 mg PO TID Diabetes 12/28/24
Held on 12/30/24. Instructions: Resume on 01/07/25. Do not resume until further discussions with your PCP
valsartan 160 mg tablet 160 mg PO DAILY Blood Pressure 12/28/24
ticagrelor 90 mg tablet 90 mg PO BID #60 tabs 12/29/24
aspirin 81 mg chewable tablet 81 mg PO DAILY #60 tabs 12/30/24
atorvastatin 40 mg tablet 40 mg PO DAILY #30 tabs 12/30/24
metoprolol succinate 25 mg tablet,extended release 24 hr 25 mg PO DAILY #30 tabs 12/30/24
Home Medication Changes
brilinta, asa, toprol are new
lipitor dose increased
repaglinide on hold, resume 01/07/25
metformin on hold, resume 12/31
Pending Results: No
--- NOTE | 2024-12-30 16:52 | PTCARENOTE ---
D/C'd pt's alarm security or surveillance monitor & IV line. Discussed pt's D/C instructions w/pt & his adult children. Pt w/language barrier so daughter translated for pt. Pt taken out via WC w/son driving pt home. Pt left w/personal belongings including cellphone.
--- NOTE | 2024-12-31 07:40 | W.DCSUMMARY ---
Discharge Summary
Discharge Data
Date of Admission: 12/28/24
Date of Discharge: 12/30/24
-
Pending Results: No
Hospital Course
Discharging Physician : Dr. Ira Mc
Disposition : Home
Principal Discharge diagnosis : NSTEMI
Hospital Course :
Mr. Cesar Watt is a 74 yo man with hx essential HTN, hypothyroidism, DM, HLD presents to the ER with chest pain on exertion over past 2 months with increasing frequency. Patient had significant chest pain on arrival in the emergency
department relieved by Nitro subL x 3.
Emergency department patient was afebrile, blood pressure was 118/69 with a pulse rate of 60 and he was satting 97% on room air. ECG shows ST depressions in the leads V4 through 6 as well as 2 3 and aVF. Troponin was initially 0.25. Chest x-ray
was clear.
Patient was given aspirin, started on an IV Heparin gtt and admitted to medicine with Cardiology consulting for NSTEMI. He was started on Metoprolol. He underwent cardiac cath on 12/29 and is s/p PCI to proximal circumflex. TTE with EF 65%, no
regional WMA, mild to moderate MR.
Patient was discharged home the following day with cardiac regimen:
Aspirin 81 mg daily
Brilinta 90mg PO BID
Lipitor increased to 40mg daily
New Start Metoprolol XL 25mg PO QD
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
Of note, LVEDP elevated on cardiac cath but patient appeared euvolemic on exam; discussed between patient and Cardiology team to monitor weights closely. May need initiation of Lasix as outpatient.
Patient remained chest free prior to discharge. Time spent on discharge was 31 minutes.
Important imaging findings :
TTE 12/29/24
SUMMARY
1. Left ventricular ejection fraction is normal with an ejection fraction of 65 % by Orona's biplane method of discs.
2. Normal left ventricular size, wall thickness and systolic function. No regional wall motion abnormalities are seen.
3. Mild to moderate mitral valve regurgitation.
Right Wrist US 12/30/24
IMPRESSION: Negative for pseudoaneurysm or hematoma.
Procedure findings :
PROCEDURES 12/29/24
1. Left heart catheterization with coronary and single-plane left ventriculography
2. Successful stenting of the proximal circumflex with a 2.75 x 18 mm Xience stent that was implanted at 16 piter and postdilated with a 3.0 mm noncompliant balloon to 20 piter
Discharge Plan
-
Patient Disposition: Home (Routine Discharge)
Discharge Diagnosis/Procedures: Angioplasty and stent to Left Circumflex artery
Diet: Low Cholesterol
Activity: As tolerated
Driving Restrictions: As prior to admission
Bathing Restrictions: None
Other Services: Cardiac Rehab
Specialty Instructions: Weigh Daily- Call MD for wt gain/loss 3 lbs overnight/5 lbs in 1 week
Stand Alone Forms: DC Instructions- Cath/EP Lab
[facility] - 01/13/25 1:00 pm
Referral Note: Cardiac Rehab Orientation appointment is on 01/13/25 at 1 PM
The Cardiac Rehab gym is located on the first floor of the [facility].
Tony Wilson, DO [Non-Admitting Privileges, Cardiology] - 01/13/25 9:00 am
Referral Note: You have a cardiology follow-up appointment with Dr. Wilson's nurse practitioner. Please call with questions
Frandy Watt MD [Family Provider] - in less than 1 week
Additional Discharge Medication Instructions: Take Aspirin 81mg daily indefinitely (You can buy over the counter when prescription runs out, or get it refilled)
Take Ticagrelor (Brilinta) 90mg twice a day x 1 year.
Stop Atorvastatin 10mg, this is replaced with Atorvastatin 40mg
You are newly started on Metoprolol XL 25mg daily
*Your outpatient providers will provide necessary refills
You may resume Metformin 48 hours after your cath procedure, on 12/31/24.
Your average sugar level (HgA1c) is only 6.1% which may mean that sometimes your sugar level is going too low. You were not given Repaglinide or Metformin in the hospital and your sugar levels were mainly in the low 100's. I recommend resuming
Metformin tomorrow but holding Repaglinide until further discussions with your PCP.
Prescriptions:
New
ticagrelor 90 mg Tablet
90 mg PO BID Qty: 60 11RF
atorvastatin 40 mg Tablet
40 mg PO DAILY Qty: 30 0RF
aspirin 81 mg Tablet,Chewable
81 mg PO DAILY Qty: 60 0RF
metoprolol succinate 25 mg Tablet Extended Release 24 Hr
25 mg PO DAILY Qty: 30 0RF
Continued
omeprazole 40 mg Capsule,Delayed Release(Dr/Ec)
40 mg PO DAILY
levothyroxine 50 mcg Tablet
50 mcg PO DAILY
ferrous sulfate 325 mg (65 mg iron) Tablet
325 mg PO DAILY
valsartan 160 mg Tablet
160 mg PO DAILY
escitalopram oxalate 10 mg Tablet
10 mg PO DAILY
cyclosporine [Restasis] 0.05 % Dropperette
1 drp OPHTHALMIC (EYE) Q12H
Rx Instructions:
instill 1 drop into both eyes twice a day
memantine 5 mg Tablet
5 mg PO DAILY
cholecalciferol (vitamin D3) 25 mcg (1,000 unit) Tablet
25 mcg PO DAILY
Linzess 72 mcg Capsule
72 mcg PO DAILY
Held
repaglinide 0.5 mg Tablet
0.5 mg PO TID
Hold Instructions: Resume on 01/07/25. Do not resume until further discussions with your PCP
metformin 750 mg Tablet Extended Release 24 Hr
750 mg PO DAILY
Hold Instructions: Resume on 12/31/24.
Discontinued
atorvastatin 10 mg Tablet
10 mg PO DAILY
Discharge Orders:
Discharge Patient (As Directed); Ordered 12/30/24
Ordered By: Tari Mariano
Care Plan Goals
Care Plan Goals:
Problem: Readiness for enhanced knowledge related to diagnosis and treatment plan
Goal: Understand your diagnosis and treatment plan needs, including medications if applicable.
Instructions: Know your diagnosis, underlying causes and treatment plan options, including medications if applicable. Consult with your health care team to learn about your diagnosis and treatment plan, including medications if applicable.
Discharge Date and Time
Discharge Date/Time: 12/30/24 17:10
Print Language: TURKMEN
== END 2024-12-30 17:10 | disposition home or self-care (01) | DRG 322 ==
LOC: IVU 06:50
PROVIDERS: Internal Medicine; Internal Medicine Interventional Cardiology; Nurse Practitioner; ADMITTING PHYSICIAN Internal Medicine; ATTENDING PHYSICIAN Student in an Organized Health Care Education/Training Program; CONSULT PHYSICIAN Internal Medicine Cardiovascular Disease; EMERGENCY PHYSICIAN Emergency Medicine; FAMILY PHYSICIAN Internal Medicine
PROC: 4A023N7 Measurement of Cardiac Sampling and Pressure, Left Heart, Percutaneous Approach (ICD-10-PCS; 2024-12-29)
PROC: B2151ZZ Fluoroscopy of Left Heart using Low Osmolar Contrast (ICD-10-PCS; 2024-12-29)
PROC: B2111ZZ Fluoroscopy of Multiple Coronary Arteries using Low Osmolar Contrast (ICD-10-PCS; 2024-12-29)
PROC: 02703DZ Dilation of Coronary Artery, One Artery with Intraluminal Device, Percutaneous Approach (ICD-10-PCS; 2024-12-29)
DX: I21.4 Non-ST elevation (NSTEMI) myocardial infarction (principal); E87.1 Hypo-osmolality and hyponatremia; E11.9 Type 2 diabetes mellitus without complications; I10 Essential (primary) hypertension; E03.9 Hypothyroidism, unspecified; Z79.82 Long term (current) use of aspirin; Z79.899 Other long term (current) drug therapy
CPT/HCPCS: 71046; 80048; 80053; 80061; 82962; 83036; 83880; 84484; 85025; 85027; 85347; 85730; 93005; 93306; 93458; 93926; 96374; 96376; 99152; 99153; 99291; C1725; C1769; C1874; C1894; C9600; Q9967